=== PATIENT | female | born 1955 | race African-American/Black ===

== ENCOUNTER 2020-09-20 14:42 | Inpatient (IN) | payer MEDICAID, OTHER ==
[~2020-09-20] VITALS: Ht 165.1 cm; Wt 71.7 kg
[2020-09-20] MEDS ORDERED: EPINEPHRINE 5 MG in SODIUM CHLORIDE 0.9% 245 ML IV PRN (15:00)
[2020-09-20] MEDS ORDERED: ASPIRIN 81MG TABLET PO ONE (15:00)
[2020-09-20] MEDS ORDERED: SODIUM CHLORIDE 0.9% 1,000 ML IV ONE ×2 (15:00→18:30)
[2020-09-20 15:56] LABS: BASOPHILS % 0.3 % (0.0-2.0); EOSINOPHILS % 1.3 % (0.0-5.0); HEMATOCRIT. 23.1 % (36.0-48.0); HEMOGLOBIN. 7.7 g/dL (12.0-16.0); LYMPHOCYTES % 8.9 % (20.0-50.0); MEAN CORPUSCULAR HEMOGLOBIN 27.1 pg (28.0-32.0); MEAN CORPUSCULAR VOLUME 81.2 fL (81.0-99.0); MEAN PLATELET VOLUME 7.1 fl (7.4-10.4); MONOCYTES % 4.1 % (2.0-8.0); NEUTROPHILS % 85.4 % (40.0-76.0); PLATELET 426 x1000/uL (130-400); RED BLOOD CELL COUNT 2.85 mill/uL (4.2-5.4); RED CELL DISTRIBUTION WIDTH 15.4 % (11.6-14.6)
[2020-09-20 16:03] LABS: CHLORIDE 104 mEq/L (98-107)
[2020-09-20 16:06] LABS: D-DIMER 3.53 mg/L FEU (<0.50); INR 1.1; PARTIAL THROMBOPLASTIN TIME 33.7 sec (23.4-31.0); PROTHROMBIN TIME 11.5 sec (9.6-11.0)
[2020-09-20 16:07] LABS: ETHANOL BLOOD < 10 mg/dL
[2020-09-20 16:14] LABS: CLARITY URINE CLEAR (CLEAR); COLOR URINE YELLOW (YELLOW); KETONES URINE NEGATIVE (NEGATIVE); LEUKOCYTE ESTERASE URINE NEGATIVE (NEGATIVE); NITRITE URINE NEGATIVE (NEGATIVE); OCCULT BLOOD URINE TRACE (NEGATIVE); PROTEIN URINE 1+ (NEGATIVE); UROBILINOGEN URINE 0.2 E.U./dL (0.2-1.0)
[2020-09-20 16:56] LABS: *BARBITURATES SCREEN URINE NEGATIVE (NEGATIVE); *BENZODIAZEPINES SCREEN URINE PRESUMTIVE POSITIVE (NEGATIVE); *COCAINE SCREEN URINE NEGATIVE (NEGATIVE); CANNABINOID URINE SCREEN NEGATIVE (NEGATIVE); METHADONE URINE SCREEN NEGATIVE (NEGATIVE); OPIATES URINE SCREEN NEGATIVE (NEGATIVE); PHENCYCLIDINE URINE SCREEN NEGATIVE (NEGATIVE)
[2020-09-20 16:57] LABS: *AMPHETAMINES SCREEN URINE NEGATIVE (NEGATIVE)
[2020-09-20] MEDS ORDERED: KCL 20MEQ/100ML PREMIX 100 ML IV SCH ×2 (18:00→21:00)
[2020-09-20] MEDS ORDERED: POTASSIUM CHLORIDE 20MEQ TABLET SR PO SCH (18:00)
[2020-09-20] MEDS ORDERED: DEXTROSE 50% WATER 50ML SYRINGE IV PRN (20:00)
[2020-09-20] MEDS ORDERED: ONDANSETRON HCL 4MG/2ML INJ IV PRN (20:00)
[2020-09-20] MEDS: MIDODRINE HCL 5MG TABLET PO SCH (23:00)
[2020-09-20] MEDS: BLOOD SUGAR DIAGNOSTIC STRIP TEST SCH (23:22)
[2020-09-20] MEDS: INSULIN LISPRO 100 UNITS/ML SUBCUT SCH (23:22)
[2020-09-21 06:08] LABS: BASOPHILS % 0.5 % (0.0-2.0); EOSINOPHILS % 0.6 % (0.0-5.0); HEMATOCRIT. 21.2 % (36.0-48.0); HEMOGLOBIN. 7.2 g/dL (12.0-16.0); LYMPHOCYTES % 8.2 % (20.0-50.0); MEAN CORPUSCULAR HEMOGLOBIN 27.5 pg (28.0-32.0); MEAN CORPUSCULAR VOLUME 81.1 fL (81.0-99.0); MEAN PLATELET VOLUME 6.4 fl (7.4-10.4); MONOCYTES % 4.3 % (2.0-8.0); NEUTROPHILS % 86.4 % (40.0-76.0); PLATELET 376 x1000/uL (130-400); RED BLOOD CELL COUNT 2.61 mill/uL (4.2-5.4); RED CELL DISTRIBUTION WIDTH 15.1 % (11.6-14.6)
[2020-09-21] MEDS: INSULIN LISPRO 100 UNITS/ML SUBCUT SCH ×4 (06:13→21:00)
[2020-09-21] MEDS: BLOOD SUGAR DIAGNOSTIC STRIP TEST SCH ×4 (06:13→21:00)
[2020-09-21] MEDS ORDERED: NOREPINEPHRINE 8 MG in SODIUM CHLORIDE 0.9% 250 ML IV PRN (08:30)
[2020-09-21] MEDS ORDERED: DEXT 5% WATER + KCL 40MEQ/L 1,000 ML IV ONE (08:45)
[2020-09-21] MEDS ORDERED: KCL 20MEQ/100ML PREMIX 100 ML IV SCH (09:00)
[2020-09-21] MEDS ORDERED: LIDOCAINE HCL 1% 20ML VIAL (Pyxis) INJ ONE (09:34)
[2020-09-21] MEDS: SODIUM CHLORIDE 0.45% 1,000 ML IV SCH ×2 (10:30→11:00)
[2020-09-21] MEDS: MIDODRINE HCL 5MG TABLET PO SCH ×3 (11:00→17:00)
[2020-09-21] MEDS: PANTOPRAZOLE SODIUM 40 MG/VIAL IV SCH (16:00)
[2020-09-21] MEDS ORDERED: POTASSIUM CHLORIDE INJ 40 MEQ in DEXT 5% WATER 250 ML IV NR (23:00)
[2020-09-22] MEDS: SODIUM CHLORIDE 0.45% 1,000 ML IV SCH ×2 (02:01→12:34)
[2020-09-22 06:56] LABS: BASOPHILS % 0.3 % (0.0-2.0); EOSINOPHILS % 0.4 % (0.0-5.0); HEMATOCRIT. 24.9 % (36.0-48.0); HEMOGLOBIN. 8.2 g/dL (12.0-16.0); LYMPHOCYTES % 8.3 % (20.0-50.0); MEAN CORPUSCULAR HEMOGLOBIN 27.5 pg (28.0-32.0); MEAN CORPUSCULAR VOLUME 83.6 fL (81.0-99.0); MEAN PLATELET VOLUME 7.2 fl (7.4-10.4); MONOCYTES % 3.6 % (2.0-8.0); NEUTROPHILS % 87.4 % (40.0-76.0); PLATELET 382 x1000/uL (130-400); RED BLOOD CELL COUNT 2.97 mill/uL (4.2-5.4); RED CELL DISTRIBUTION WIDTH 15.8 % (11.6-14.6)
[2020-09-22] MEDS: BLOOD SUGAR DIAGNOSTIC STRIP TEST SCH ×4 (08:28→21:32)
[2020-09-22] MEDS: INSULIN LISPRO 100 UNITS/ML SUBCUT SCH ×4 (08:28→21:00)
[2020-09-22] MEDS: PANTOPRAZOLE SODIUM 40 MG/VIAL IV SCH (09:11)
[2020-09-22] MEDS: MIDODRINE HCL 5MG TABLET PO SCH ×2 (10:41→12:34)
[2020-09-22 13:46] LABS: TOTAL IRON BINDING CAPACITY 104 ug/dL (250-450)
[2020-09-23 02:30] VITALS: BP 141/91
[2020-09-23 04:00] VITALS: BP 145/81
[2020-09-23] MEDS: SODIUM CHLORIDE 0.45% 1,000 ML IV SCH ×2 (04:18→15:24)
[2020-09-23 07:02] LABS: BASOPHILS % 0.2 % (0.0-2.0); EOSINOPHILS % 1.1 % (0.0-5.0); HEMATOCRIT. 22.3 % (36.0-48.0); HEMOGLOBIN. 7.4 g/dL (12.0-16.0); LYMPHOCYTES % 10.9 % (20.0-50.0); MEAN CORPUSCULAR HEMOGLOBIN 27.1 pg (28.0-32.0); MEAN CORPUSCULAR VOLUME 81.7 fL (81.0-99.0); MEAN PLATELET VOLUME 7.4 fl (7.4-10.4); MONOCYTES % 4.4 % (2.0-8.0); NEUTROPHILS % 83.4 % (40.0-76.0); PLATELET 374 x1000/uL (130-400); RED BLOOD CELL COUNT 2.72 mill/uL (4.2-5.4); RED CELL DISTRIBUTION WIDTH 15.8 % (11.6-14.6)
[2020-09-23] MEDS: BLOOD SUGAR DIAGNOSTIC STRIP TEST SCH ×4 (07:30→23:30)
[2020-09-23 08:00] VITALS: BP 130/69
[2020-09-23] MEDS: INSULIN LISPRO 100 UNITS/ML SUBCUT SCH ×3 (08:00→18:00)
[2020-09-23] MEDS: PANTOPRAZOLE SODIUM 40 MG/VIAL IV SCH (09:22)
[2020-09-23 12:00] VITALS: BP 137/73
[2020-09-23] MEDS ORDERED: POTASSIUM CHLORIDE 20MEQ TABLET SR PO SCH (15:00)
[2020-09-23 16:00] VITALS: BP 145/72
[2020-09-23 20:00] VITALS: BP 152/78
[2020-09-24] VITALS (9 sets, daily range): BP systolic 99–170; BP diastolic 58–97
[2020-09-24] MEDS: SODIUM CHLORIDE 0.45% 1,000 ML IV SCH ×2 (05:00→21:23)
[2020-09-24] MEDS: BLOOD SUGAR DIAGNOSTIC STRIP TEST SCH ×4 (05:30→23:03)
[2020-09-24] MEDS: INSULIN LISPRO 100 UNITS/ML SUBCUT SCH ×5 (06:00→23:07)
[2020-09-24 07:44] LABS: CHLORIDE 120 mEq/L (98-107)
[2020-09-24] MEDS ORDERED: POTASSIUM CHLORIDE 20MEQ/PACKET PO NR (08:45)
[2020-09-24 09:29] LABS: HEMATOCRIT. 21.3 % (36.0-48.0); HEMOGLOBIN. 7.1 g/dL (12.0-16.0); MEAN CORPUSCULAR HEMOGLOBIN 27.1 pg (28.0-32.0); MEAN CORPUSCULAR VOLUME 81.8 fL (81.0-99.0); MEAN PLATELET VOLUME 6.9 fl (7.4-10.4); PLATELET 349 x1000/uL (130-400); RED CELL DISTRIBUTION WIDTH 16.2 % (11.6-14.6)
[2020-09-24] MEDS: PANTOPRAZOLE SODIUM 40 MG/VIAL IV SCH (09:56)
[2020-09-24] MEDS ORDERED: POTASSIUM CHLORIDE INJ 40 MEQ in DEXT 5% WATER 250 ML IV ONE (10:00)
[2020-09-24 10:43] LABS: PLATELET ESTIMATE NORMAL
[2020-09-24] MEDS ORDERED: GADOTERATE MEGLUMINE 5 MMOL/10 ML VIAL IV ONE (14:45)
[2020-09-25] VITALS (9 sets, daily range): BP systolic 141–171; BP diastolic 73–95
[2020-09-25 01:39] LABS: T4 FREE 1.38 ng/dL (0.76-1.46)
[2020-09-25] MEDS: CLONIDINE 0.1MG TABLET PO PRN ×2 (03:11→10:10)
[2020-09-25] MEDS: BLOOD SUGAR DIAGNOSTIC STRIP TEST SCH ×4 (04:37→23:30)
[2020-09-25] MEDS: INSULIN LISPRO 100 UNITS/ML SUBCUT SCH ×4 (04:43→23:36)
[2020-09-25] MEDS: PANTOPRAZOLE SODIUM 40 MG/VIAL IV SCH (09:15)
[2020-09-25 09:41] LABS: HEMATOCRIT 26.9 % (36.0-48.0); HEMOGLOBIN 8.8 g/dL (12.0-16.0)
[2020-09-25 10:34] LABS: VITAMIN B12 SERUM > 2000.0 pg/mL (211-911)
[2020-09-25] MEDS ORDERED: CEFAZOLIN 1000MG PREMIX 50 ML IV ONE (13:15)
[2020-09-25 15:18] LABS: BASOPHILS % 0.2 % (0.0-2.0); EOSINOPHILS % 1.1 % (0.0-5.0); HEMOGLOBIN. 8.4 g/dL (12.0-16.0); LYMPHOCYTES % 9.3 % (20.0-50.0); MEAN CORPUSCULAR HEMOGLOBIN 26.7 pg (28.0-32.0); MEAN CORPUSCULAR VOLUME 82.8 fL (81.0-99.0); MEAN PLATELET VOLUME 7.4 fl (7.4-10.4); MONOCYTES % 4.3 % (2.0-8.0); NEUTROPHILS % 85.1 % (40.0-76.0); PLATELET 339 x1000/uL (130-400); RED BLOOD CELL COUNT 3.14 mill/uL (4.2-5.4); RED CELL DISTRIBUTION WIDTH 15.9 % (11.6-14.6)
[2020-09-25 15:29] LABS: CHLORIDE 114 mEq/L (98-107)
[2020-09-25] MEDS ORDERED: POTASSIUM CHLORIDE 20MEQ TABLET SR PO NR (16:15)
[2020-09-25] MEDS ORDERED: CEFTRIAXONE 1 G PREMIX 50 ML IV SCH (16:15)
[2020-09-25] MEDS: AMLODIPINE 10MG TABLET PO SCH (17:14)
[2020-09-25] MEDS: SODIUM CHLORIDE 0.45% 1,000 ML IV SCH ×2 (18:52→21:13)
[2020-09-25] MEDS: CEFTRIAXONE 1,000 MG in DEXTROSE 5% WATER 50 ML IV SCH (21:12)
[2020-09-26] VITALS: BP 152/81
[2020-09-26 04:00] VITALS: BP 157/81
[2020-09-26] MEDS: BLOOD SUGAR DIAGNOSTIC STRIP TEST SCH ×3 (05:30→17:34)
[2020-09-26] MEDS: INSULIN LISPRO 100 UNITS/ML SUBCUT SCH ×3 (05:36→17:34)
[2020-09-26 06:53] LABS: CHLORIDE 115 mEq/L (98-107)
[2020-09-26 06:59] LABS: AMYLASE 102 IU/L (25-115); INR 1.1; PROTHROMBIN TIME 11.4 sec (9.6-11.0)
[2020-09-26 07:14] LABS: BASOPHILS % 0.2 % (0.0-2.0); EOSINOPHILS % 1.4 % (0.0-5.0); HEMATOCRIT. 24.7 % (36.0-48.0); HEMOGLOBIN. 8.3 g/dL (12.0-16.0); MEAN CORPUSCULAR HEMOGLOBIN 27.6 pg (28.0-32.0); MEAN CORPUSCULAR VOLUME 82.1 fL (81.0-99.0); MEAN PLATELET VOLUME 7.3 fl (7.4-10.4); MONOCYTES % 4.8 % (2.0-8.0); NEUTROPHILS % 83.6 % (40.0-76.0); PLATELET 271 x1000/uL (130-400); RED CELL DISTRIBUTION WIDTH 16.4 % (11.6-14.6)
[2020-09-26 08:00] VITALS: BP 158/81
[2020-09-26] MEDS ORDERED: CLINDAMYCIN 600MG PREMIX 50 ML IV SCH (10:00)
[2020-09-26] MEDS ORDERED: POTASSIUM CHLORIDE 20MEQ/PACKET NG NR (10:45)
[2020-09-26] MEDS: AMLODIPINE 10MG TABLET PO SCH (11:11)
[2020-09-26] MEDS: SODIUM CHLORIDE 0.45% 1,000 ML IV SCH (11:11)
[2020-09-26] MEDS: PANTOPRAZOLE SODIUM 40 MG/VIAL IV SCH (11:11)
[2020-09-26 12:00] VITALS: BP 145/86
[2020-09-26 16:00] VITALS: BP 136/86
[2020-09-26] MEDS: CEFTRIAXONE 1,000 MG in DEXTROSE 5% WATER 50 ML IV SCH (22:07)
[2020-09-27] MEDS: BLOOD SUGAR DIAGNOSTIC STRIP TEST SCH ×4 (00:29→16:58)
[2020-09-27] MEDS: INSULIN LISPRO 100 UNITS/ML SUBCUT SCH ×4 (00:31→17:09)
[2020-09-27] MEDS: SODIUM CHLORIDE 0.45% 1,000 ML IV SCH ×2 (00:32→12:37)
[2020-09-27 07:34] LABS: BASOPHILS % 0.3 % (0.0-2.0); EOSINOPHILS % 1.5 % (0.0-5.0); HEMOGLOBIN. 8.2 g/dL (12.0-16.0); LYMPHOCYTES % 9.3 % (20.0-50.0); MEAN CORPUSCULAR HEMOGLOBIN 27.2 pg (28.0-32.0); MEAN CORPUSCULAR VOLUME 83.1 fL (81.0-99.0); MEAN PLATELET VOLUME 7.9 fl (7.4-10.4); MONOCYTES % 4.8 % (2.0-8.0); NEUTROPHILS % 84.1 % (40.0-76.0); PLATELET 245 x1000/uL (130-400); RED BLOOD CELL COUNT 3.01 mill/uL (4.2-5.4); RED CELL DISTRIBUTION WIDTH 16.7 % (11.6-14.6)
[2020-09-27 07:43] LABS: INR 1.1; PROTHROMBIN TIME 11.2 sec (9.6-11.0)
[2020-09-27 08:00] VITALS: BP 133/75
[2020-09-27 08:40] LABS: CHLORIDE 115 mEq/L (98-107)
[2020-09-27 08:50] LABS: AMYLASE 81 IU/L (25-115)
[2020-09-27] MEDS: AMLODIPINE 10MG TABLET PO SCH (09:00)
[2020-09-27] MEDS: PANTOPRAZOLE SODIUM 40 MG/VIAL IV SCH (09:50)
[2020-09-27 12:00] VITALS: BP 149/82
[2020-09-27 16:00] VITALS: BP 159/87
[2020-09-27] MEDS ORDERED: POTASSIUM CHLORIDE INJ 40 MEQ in DEXT 5% WATER 250 ML IV SCH (16:00)
[2020-09-27] MEDS ORDERED: LIDOCAINE HCL/PF 1% 10 MG/ML 5ML VIAL ONE (17:45)
[2020-09-27] MEDS ORDERED: FENTANYL CITRATE/PF 50MCG/ML 2ML VIAL ONE (17:45)
[2020-09-27] MEDS ORDERED: MIDAZOLAM HCL 5 MG/5 ML VIAL ONE (17:45)
[2020-09-27] MEDS ORDERED: MIDAZOLAM HCL 5 MG/5 ML VIAL IV PRN (18:02)
[2020-09-27 20:00] VITALS: BP 160/85
[2020-09-27] MEDS: CEFTRIAXONE 1,000 MG in DEXTROSE 5% WATER 50 ML IV SCH (20:27)
[2020-09-27] MEDS: ATORVASTATIN CALCIUM 40MG TABLET PO SCH (21:00)
[2020-09-28] VITALS: BP_SYST 107; BP_SYST 159; BP_DIAS 62; BP_DIAS 82
[2020-09-28 04:36] VITALS: BP_SYST 131; BP_SYST 157; BP_DIAS 75; BP_DIAS 81
[2020-09-28 08:00] VITALS: BP 144/77
[2020-09-28] MEDS: AMLODIPINE 10MG TABLET PO SCH (08:43)
[2020-09-28] MEDS: PANTOPRAZOLE SODIUM 40 MG/VIAL IV SCH (08:43)
[2020-09-28] MEDS: SODIUM CHLORIDE 0.45% 1,000 ML IV SCH ×2 (09:01→14:48)
[2020-09-28 12:00] VITALS: BP 158/85
[2020-09-28] MEDS: INSULIN LISPRO 100 UNITS/ML SUBCUT SCH ×2 (12:00→18:10)
[2020-09-28] MEDS: BLOOD SUGAR DIAGNOSTIC STRIP TEST SCH ×3 (12:03→23:30)
[2020-09-28 16:00] VITALS: BP 158/86
[2020-09-28 20:00] VITALS: BP 164/86
[2020-09-28] MEDS: ATORVASTATIN CALCIUM 40MG TABLET PO SCH (20:52)
[2020-09-28] MEDS: CEFTRIAXONE 1,000 MG in DEXTROSE 5% WATER 50 ML IV SCH (20:52)
[2020-09-28] MEDS: CLONIDINE 0.1MG TABLET PO PRN (23:01)
[2020-09-29] VITALS (11 sets, daily range): BP systolic 119–166; BP diastolic 62–87
[2020-09-29] MEDS: INSULIN LISPRO 100 UNITS/ML SUBCUT SCH ×4 (00:44→17:55)
[2020-09-29] MEDS: SODIUM CHLORIDE 0.45% 1,000 ML IV SCH ×2 (05:40→17:56)
[2020-09-29] MEDS: BLOOD SUGAR DIAGNOSTIC STRIP TEST SCH ×3 (05:40→17:42)
[2020-09-29] MEDS: PANTOPRAZOLE SODIUM 40 MG/VIAL IV SCH (09:54)
[2020-09-29] MEDS: AMLODIPINE 10MG TABLET PO SCH (09:55)
[2020-09-29 20:12] LABS: CHLORIDE 111 mEq/L (98-107); HEMATOCRIT. 23.1 % (36.0-48.0); HEMOGLOBIN. 7.6 g/dL (12.0-16.0); MEAN CORPUSCULAR HEMOGLOBIN 27.5 pg (28.0-32.0); MEAN CORPUSCULAR VOLUME 83.6 fL (81.0-99.0); MEAN PLATELET VOLUME 7.6 fl (7.4-10.4); PLATELET 313 x1000/uL (130-400); RED BLOOD CELL COUNT 2.77 mill/uL (4.2-5.4); RED CELL DISTRIBUTION WIDTH 16.7 % (11.6-14.6)
[2020-09-29] MEDS: CEFTRIAXONE 1,000 MG in DEXTROSE 5% WATER 50 ML IV SCH (20:30)
[2020-09-29] MEDS: ATORVASTATIN CALCIUM 40MG TABLET PO SCH (20:31)
[2020-09-29 20:59] LABS: PLATELET ESTIMATE NORMAL
[2020-09-30] VITALS: BP 128/74
[2020-09-30] MEDS: INSULIN LISPRO 100 UNITS/ML SUBCUT SCH ×3 (00:08→13:08)
[2020-09-30] MEDS: BLOOD SUGAR DIAGNOSTIC STRIP TEST SCH ×3 (00:09→11:30)
[2020-09-30 04:00] VITALS: BP 132/72
[2020-09-30 08:00] VITALS: BP 129/70
[2020-09-30] MEDS: PANTOPRAZOLE SODIUM 40 MG/VIAL IV SCH (08:48)
[2020-09-30] MEDS: AMLODIPINE 10MG TABLET PO SCH (08:50)
[2020-09-30] MEDS: SODIUM CHLORIDE 0.45% 1,000 ML IV SCH (08:51)
[2020-09-30 12:00] VITALS: BP 133/70
[2020-09-30 13:46] VITALS: BP 150/79
[2020-09-30 16:00] VITALS: BP 150/77
== END 2020-09-30 18:17 | DRG 720 ==
LOC: ER 14:57 → MICUSO 19:17 → EDBEDREQ 19:20 → EDBEDREQTM 19:20 → 5EST 09-22 23:13
PROVIDERS: ADMIT Internal Medicine; ATTEND Internal Medicine
PROC: 05HY33Z Insertion of Infusion Device into Upper Vein, Percutaneous Approach (ICD-10-PCS; 2020-09-21)
PROC: B54MZZA Ultrasonography of Right Upper Extremity Veins, Guidance (ICD-10-PCS; 2020-09-21)
PROC: 30233N1 Transfusion of Nonautologous Red Blood Cells into Peripheral Vein, Percutaneous Approach (ICD-10-PCS; 2020-09-24)
PROC: 0DH68UZ Insertion of Feeding Device into Stomach, Via Natural or Artificial Opening Endoscopic (ICD-10-PCS; principal; 2020-09-27)
DX: A41.89 Other specified sepsis (principal); E43 Unspecified severe protein-calorie malnutrition; N17.0 Acute kidney failure with tubular necrosis; K85.90 Acute pancreatitis without necrosis or infection, unspecified; E87.6 Hypokalemia; K82.8 Other specified diseases of gallbladder; E11.22 Type 2 diabetes mellitus with diabetic chronic kidney disease; E87.1 Hypo-osmolality and hyponatremia; G92 Toxic encephalopathy; J96.00 Acute respiratory failure, unspecified whether with hypoxia or hypercapnia; R57.1 Hypovolemic shock; J69.0 Pneumonitis due to inhalation of food and vomit; D50.9 Iron deficiency anemia, unspecified; E72.20 Disorder of urea cycle metabolism, unspecified; I12.9 Hypertensive chronic kidney disease with stage 1 through stage 4 chronic kidney disease, or unspecified chronic kidney disease; K29.70 Gastritis, unspecified, without bleeding; K44.9 Diaphragmatic hernia without obstruction or gangrene; L85.3 Xerosis cutis; N18.9 Chronic kidney disease, unspecified; R13.10 Dysphagia, unspecified; R65.20 Severe sepsis without septic shock; M71.22 Synovial cyst of popliteal space [Baker], left knee; Z79.01 Long term (current) use of anticoagulants; Z86.73 Personal history of transient ischemic attack (TIA), and cerebral infarction without residual deficits; Z89.422 Acquired absence of other left toe(s); Z68.26 Body mass index [BMI] 26.0-26.9, adult; E86.1 Hypovolemia; E87.0 Hyperosmolality and hypernatremia; Z20.822 Contact with and (suspected) exposure to COVID-19
CPT/HCPCS: 36415; 36573; 70544; 70552; 71045; 76700; 80048; 80053; 80061; 80305; 80320; 81003; 82140; 82150; 82247; 82248; 82607; 82728; 82746; 82962; 83036; 83540; 83550; 83605; 83735; 83880; 84075; 84132; 84145; 84439; 84443; 84450; 84460; 84481; 84484; 85014; 85018; 85025; 85379; 86850; 86900; 86920; 87426; 92610; 93005; 93306; 93880; 93923; 93970; 97162; 97166; 99285; A6261; A9577; C1725; C9113; J0696; J1815; J2250; J3010; J3480; J3490; J7030; J7040; J7060; P9016; U0003; A4315; G0480